=== PATIENT | male | born 1975 | race Caucasian/White ===

== ENCOUNTER 2016-08-19 11:43 | Emergency (ER) | payer OTHER ==
[2016-08-19 12:06] LABS: BASOPHIL 1.3 % (0-2); EOSINOPHIL 4.2 % (0-5); HGB 17.7 g/dl (13.2-18.0); LYMPHOCYTE 33.1 % (15-48); MCH 33.5 pg (25.0-31.0); MCHC 36.1 g/dL (32.0-36.0); MCV 92.8 fL (78.0-100.0); MONOCYTE 9.8 % (0-12); NEUTROPHIL 51.6 % (41-80); PLT 248 K/uL (150-400); RBC 5.28 M/uL (4.70-6.00); RDW 11.9 % (11.5-14.0); WBC 7.2 K/uL (4.0-10.5)
[2016-08-19 12:20] LABS: ALBUMIN 5.1 g/dL (3.5-5.0); BILIRUBIN - TOTAL 0.6 mg/dL (0.1-1.0); CREATININE 0.9 mg/dL (0.7-1.2); GLOBULIN (CALCULATION) 2.4 g/dL (2.2-4.2); POTASSIUM 3.9 mmol/L (3.5-5.1); TOTAL PROTEIN 7.5 g/dL (6.4-8.3)
== END 2016-08-19 13:06 | disposition home or self-care (01) ==
LOC: FER 11:43
PROVIDERS: Internal Medicine
DX: R07.89 Other chest pain (principal); K21.9 Gastro-esophageal reflux disease without esophagitis; Z87.891 Personal history of nicotine dependence; Z79.899 Other long term (current) drug therapy
CPT/HCPCS: 36415; 71010; 80053; 83690; 84484; 85025; 93005; J1885